=== PATIENT | male | born 1955 | race Caucasian/White ===

== ENCOUNTER 2023-08-13 08:40 | Outpatient (CLI) | payer MEDICARE, SELFPAY ==
--- NOTE | ~2023-08-13 | MR_ITS ---
MRI of the left knee Clinical history: Chronic pain Technique: Coronal proton density and proton density-weighted images, sagittal proton-density and T2 fat-sat images, and axial proton-density fat-saturated images were acquired. Findings: Patient is status post prior ACL reconstruction. ACL graft appears to be intact. Posterior cruciate ligament intact. Medial collateral ligament and the lateral collateral ligament complex are intact. Popliteus tendon is intact. There is complex tearing of the posterior horn and posterior root of the medial meniscus. No lateral meniscus tear seen. Articular cartilage in the patellofemoral and lateral compartments is relatively well-preserved. 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 Minimal tricompartm ental osteophytes are present. Extensor mechanism is intact. Moderate joint effusion present. No Rocha's cyst. Impression: Complex tearing of the posterior horn and posterior root of the medial meniscus. Moderate degenerative change of the medial compartment. Mild degenerative change of the lateral and p atellofemoral compartments. Moderate joint effusion. Prior ACL reconstruction. Reviewed, dictated and finalized at location . Impression: Complex tearing of the posterior horn and posterior root of the medial meniscus . Moderate degenerative change of the medial compartment. Mild degenerative carr e of the lateral and patellofemoral compartments. Moderate joint effusion. Prior ACL reconstruction.
--- NOTE | ~2023-08-13 | MR_ITS ---
MRI of the right knee Clinical history: Chronic pain Technique: Coronal proton density and proton density-weighted images, sagittal proton-density and T2 fat-sat images, and axial proton-density fat-saturated images were acquired. Findings: Anterior and posterior cruciate ligaments are intact. Medial collateral ligament and the la teral collateral ligament complex are intact. Popliteus tendon is intact. There is complex tearing of the posterior horn and body of the medial meniscus. No lateral meniscal t ear evident. Focal high-grade chondral fissure present along the medial patellar facet. There is extensive high-gr starr chondral malacia the inferior aspect of the femoral trochlea. There is patchy moderate to high-gr starr chondromalacia of the medial compartment near the joint line. Articular cartilage in the lateral compartment is relatively well-preserved. Small tricompartmental osteophytes are present. Extensor mechanism is intact. Moderate joint effusion present. No Rocha's cyst. Impression: Complex tearing of the posterior horn and body of the medial meniscus. Degenerative change, as detailed above, overall mild to mild/moderate in severity. Moderate joint effusion. Reviewed, dictated and finalized at location . Impression: Complex tearing of the posterior horn and body of the medial meniscus. Degenerative change, as detailed above, overall mild to mild/moderate in severi ty. Moderate joint effusion.
== END 2023-08-13 08:41 ==
LOC: MICIMG 08:42
PROVIDERS: PCP Physician Assistant; Visit Provider Orthopaedic Surgery
DX: S83.231A Complex tear of medial meniscus, current injury, right knee, initial encounter (principal); S83.232A Complex tear of medial meniscus, current injury, left knee, initial encounter; M25.461 Effusion, right knee; M25.462 Effusion, left knee; X58.XXXA Exposure to other specified factors, initial encounter
CPT/HCPCS: 73721